=== PATIENT | female | born 1960 | race Caucasian/White ===

== ENCOUNTER → 2021-02-14 | Outpatient (CLI) | payer BC ==
[2021-02-15 15:15] LABS: RHEUMATOID ARTHRITIS FACTOR <10.0 IU/mL (0.0-13.9)
[2021-02-15 23:09] LABS: CCP ANTIBODIES IGG/IGA 6 units (0-19)
== END ==
LOC: LAB 12:09
PROVIDERS: Nurse Practitioner Family
DX: M79.642 Pain in left hand (principal); M79.641 Pain in right hand; M25.50 Pain in unspecified joint; D89.9 Disorder involving the immune mechanism, unspecified; R76.8 Other specified abnormal immunological findings in serum; M19.041 Primary osteoarthritis, right hand; M19.042 Primary osteoarthritis, left hand
CPT/HCPCS: 36415; 73130; 73562; 82550; 83520; 85652; 86140; 86200; 86431

== ENCOUNTER → 2021-03-20 | Outpatient (CLI) | payer BC ==
[2021-03-21 09:14] LABS: HEP B CORE AB, TOT Negative (Negative)
[2021-03-21 10:13] LABS: HCV AB <0.1 (0.0-0.9)
[2021-03-21 11:13] LABS: HBSAG SCREEN Negative (Negative)
[2021-03-21 13:13] LABS: ALDOLASE 11.1 U/L (3.3-10.3)
[2021-04-07 16:12] LABS: ANTI-EJ AB (RDL) Negative (Negative); ANTI-JO-1 AB (RDL) <20 Units (<20); ANTI-KU AB (RDL) Negative (Negative); ANTI-MDA-5 AB (CADM-140)(RDL) <20 Units (<20); ANTI-MI-2 AB (RDL) Negative (Negative); ANTI-NXP-2 (P140) AB (RDL) <20 Units (<20); ANTI-OJ AB (RDL) Negative (Negative); ANTI-PL-12 AB (RDL) Weak Positive (Negative); ANTI-PL-7 AB (RDL) Negative (Negative); ANTI-PM/SCL-100 AB (RDL) <20 Units (<20); ANTI-SRP AB (RDL) Negative (Negative); ANTI-TIF-1GAMMA AB (RDL) <20 Units (<20); ANTI-U1 RNP AB (RDL) <20 Units (<20); ANTI-U2 RNP AB (RDL) Negative (Negative); ANTI-U3 RNP (FIBRILLARIN)(RDL) Negative (Negative)
== END ==
LOC: LAB 10:28
PROVIDERS: Internal Medicine
DX: R76.8 Other specified abnormal immunological findings in serum (principal); R74.8 Abnormal levels of other serum enzymes; R53.83 Other fatigue; Z51.81 Encounter for therapeutic drug level monitoring; Z11.59 Encounter for screening for other viral diseases
CPT/HCPCS: 36415; 82085; 82550; 82728; 83516; 86235; 86704; 86803; 87340

== ENCOUNTER → 2021-05-08 | Outpatient (CLI) | payer BC | LOC: MRI 04-27 08:30 | DX: R74.8 Abnormal levels of other serum enzymes (principal); M62.81 Muscle weakness (generalized); M16.0 Bilateral primary osteoarthritis of hip | CPT/HCPCS: 73718 ==

== ENCOUNTER → 2021-07-20 | Outpatient (CLI) | payer BC ==
[2021-07-20 11:00] LABS: HEMOGLOBIN 13.9 gm/dl (12.3-15.3); RED BLOOD COUNT 4.31 M/UL (4.00-5.10); WHITE BLOOD COUNT 3.3 K/UL (4.5-11.0)
[2021-07-21 15:14] LABS: ALDOLASE 13.6 U/L (3.3-10.3)
== END ==
LOC: LAB 10:09
PROVIDERS: Internal Medicine
DX: Z51.81 Encounter for therapeutic drug level monitoring (principal); M06.4 Inflammatory polyarthropathy; R74.8 Abnormal levels of other serum enzymes; R76.8 Other specified abnormal immunological findings in serum; M62.81 Muscle weakness (generalized)
CPT/HCPCS: 36415; 80053; 82085; 82550; 83516; 85025; 86235

== ENCOUNTER → 2021-08-02 | Outpatient (CLI) | payer BC | LOC: HEART 5 13:41 | DX: D89.89 Other specified disorders involving the immune mechanism, not elsewhere classified (principal); R06.00 Dyspnea, unspecified | CPT/HCPCS: 94010 ==

== ENCOUNTER → 2021-09-15 | Outpatient (CLI) | payer BC ==
[2021-09-15 11:15] LABS: HEMOGLOBIN 13.9 gm/dl (12.3-15.3); RED BLOOD COUNT 4.32 M/UL (4.00-5.10); WHITE BLOOD COUNT 4.5 K/UL (4.5-11.0)
[2021-09-18 14:11] LABS: ALDOLASE 12.9 U/L (3.3-10.3)
== END ==
LOC: LAB 09:30
PROVIDERS: Internal Medicine
DX: M06.4 Inflammatory polyarthropathy (principal); R74.8 Abnormal levels of other serum enzymes; Z51.81 Encounter for therapeutic drug level monitoring; R76.8 Other specified abnormal immunological findings in serum; M62.81 Muscle weakness (generalized)
CPT/HCPCS: 36415; 80053; 82085; 82550; 83516; 85025; 86235